=== PATIENT | male | born 1980 | race Caucasian/White ===

== ENCOUNTER 2017-08-04 21:44 | Emergency (ER) | payer SELFPAY ==
[~2017-08-04] VITALS: Ht 185.4 cm; Wt 108.4 kg
[2017-08-04 21:48] VITALS: BP 139/81; PULSE 87; RESP 16; TEMP 102.1; O2SAT 95
[2017-08-04 22:00] VITALS: BP 139/81; PULSE 87; RESP 18; TEMP 102.1; O2SAT 95
[2017-08-04 22:10] VITALS: BP 142/76; PULSE 76; RESP 16; O2SAT 97
[2017-08-04] MEDS ORDERED: PROM25TA10 PO (22:15)
[2017-08-04] MEDS ORDERED: AMOX500C PO (22:15)
[2017-08-04] MEDS ORDERED: BENZ1CAP51 PO (22:15)
[2017-08-04] MEDS ORDERED: FEXO1TAB97 PO (22:15)
[2017-08-04] MEDS ORDERED: SODIUM CHLOR 0.9% 1000 ML INJ 1,000 ML IV SCH (22:20)
--- NOTE | 2017-08-04 22:20 | PD ---
HPI Chief Complaint: Allergic/Adverse Reaction Time Seen by Provider: 22:10 Travel History International Travel<30 days: No Contact w/Intl Traveler<30days: No Traveled to known affect area: No History of Present Illness HPI She was seen out at [place], and diagnosed with a pneumonia and given shots as well as a prescription for amoxicillin/Tessalon Perles/Re/. Per patient he started feeling itchy yesterday but continued on taking the regimen today, later on throughout the day tonight he started to notice bumps started to form throughout his head, neck and chest. Patient does not recall what shots. PFSH Past Medical History Diminished Hearing: No Influenza Vaccination: No Social History Alcohol Use: No Tobacco Use: Yes (1.5 PPD) Substance Use: Yes (marijuana) Allergies-Medications (Allergen,Severity, Reaction): Coded Allergies: No Known Allergies (Verified Allergy, Unknown, 08/04/17) Reported Meds & Prescriptions Reported Meds & Active Scripts Active Cipro (Ciprofloxacin HCl) 500 Mg Tab 500 Mg PO BID 5 Days Epipen 2-Baltazar Inj (Epinephrine) 0.3 Mg/0.3 Ml Pfpen 0.3 Mg SQ ONCE PRN Medrol Dosepak (Methylprednisolone) 4 Mg Dspk 4 Mg PO DIRECTED Per Pharmacist direction Pepcid (Famotidine) 20 Mg Tab 20 Mg PO BID 10 Days Reported Benzonatate 200 Mg Cap 200 Mg PO TID PRN Phenergan (Promethazine HCl) 25 Mg Tablet 25 Mg PO Q8HR PRN Re-D 24 Hour Allergy (Fexofenadine-Pseudoephedrine ER 24 HR) 180-240 Roque 1 Tab PO DAILY Amoxicillin 500 Mg Cap 500 Mg PO TID Review of Systems General / Constitutional: No: Fever Eyes: No: Visual changes HENT: No: Headaches Cardiovascular: No: Chest Pain or Discomfort Respiratory: No: Shortness of Breath Gastrointestinal: No: Abdominal Pain Genitourinary: No: Dysuria Musculoskeletal: No: Pain Skin: Positive Rash, Positive Itching Neurologic: No: Weakness Psychiatric: No: Depression Endocrine: No: Polydipsia Hematologic/Lymphatic: No: Easy Bruising Physical Exam Narrative GENERAL: SKIN: Warm and dry. However hives noted throughout upper body(head neck and shoulder area) HEAD: Atraumatic. Normocephalic. EYES: Pupils equal and round. No scleral icterus. No injection or drainage. ENT: No nasal bleeding or discharge. Mucous membranes pink and moist. No swelling to tongue or lips. No uvular edema NECK: Trachea midline. No JVD. No stridor CARDIOVASCULAR: Regular rate and rhythm. RESPIRATORY: No accessory muscle use. Clear to auscultation. Breath sounds equal bilaterally. No wheezing GASTROINTESTINAL: Abdomen soft, non-tender, nondistended. Hepatic and splenic margins not palpable. MUSCULOSKELETAL: Extremities without clubbing, cyanosis, or edema. No obvious deformities. NEUROLOGICAL: Awake and alert. No obvious cranial nerve deficits. Motor grossly within normal limits. Five out of 5 muscle strength in the arms and legs. Normal speech. PSYCHIATRIC: Appropriate mood and affect; insight and judgment normal. Data Data Last Documented VS Vital Signs Date Time Temp Pulse Resp B/P (MAP) Pulse Ox O2 Delivery O2 Flow Rate FiO2 08/04/17 23:22 82 16 147/70 (95) 97 08/04/17 23:12 Room Air 08/04/17 22:00 102.1 Orders Orders Ecg Monitoring (08/04/17 22:20) Iv Access Insert/Monitor (08/04/17 22:20) Oximetry (08/04/17 22:20) Diphenhydramine Inj (Benadryl Inj) (08/04/17 22:30) Methylprednisolone So Succ Inj (Solumedr (08/04/17 22:30) Famotidine Inj (Pepcid Inj) (08/04/17 22:30) Sodium Chlor 0.9% 1000 Ml Inj (Ns 1000 M (08/04/17 22:20) Epinephrine (1:1000) Inj (Adrenalin (1:1 (08/04/17 22:30) Ed Discharge Order (08/04/17 23:12) MDM Medical Decision Making Medical Screen Exam Complete: Yes Emergency Medical Condition: Yes Medical Record Reviewed: Yes Differential Diagnosis Dermatitis versus allergic reaction versus angioedema versus anaphylaxis Narrative Course Patient was evaluated after evaluation and examination the patient is has symptoms consistent with allergic reaction, the patient will be given Benadryl Pepcid Solu-Medrol IV and epinephrine subcu Diagnosis Primary Impression: Allergic reaction unknown source Additional Instructions: Highly recommend that you stop your amoxicillin, stop the Tessalon Perles, and stop any other medications that you were given by the urgent care with the exception of the Re. It is okay to take the Re in addition to the medications I am giving you today, Pepcid/Medrol Dosepak/which will help you with your allergic reaction. I have switched your antibiotic from amoxicillin to Cipro which will cover very well for any type of pneumonia. You are also been given a prescription for EpiPen in the event that you develop not only the rash but also difficulty breathing or feel a knot sensation on your throat or swelling to lip or tongue Scripts Ciprofloxacin (Cipro) 500 Mg Tab 500 MG PO BID for Infection for 5 Days, #10 TAB 0 Refills Prov: Stephan Ochoa MD 08/04/17 Epinephrine Inj (Epipen 2-Baltazar Inj) 0.3 Mg/0.3 Ml Pfpen 0.3 MG SQ ONCE Y for ALLERGIC REACTION, #1 PACK 0 Refills Prov: Stephan Ochoa MD 08/04/17 Methylprednisolone Dosepak (Medrol Dosepak) 4 Mg Dspk 4 MG PO DIRECTED, #1 DSPK 0 Refills Per Pharmacist direction Prov: Stephan Ochoa MD 08/04/17 Famotidine (Pepcid) 20 Mg Tab 20 MG PO BID for 10 Days, #20 TAB 0 Refills Prov: Stephan Ochoa MD 08/04/17 Disposition: 01 DISCHARGE HOME Condition: Stable Stephan Ochoa MD Aug 04, 2017 22:20
[2017-08-04] MEDS ORDERED: FAMO1TAB37 PO (22:29)
[2017-08-04] MEDS ORDERED: CIPR-9 PO (22:29)
[2017-08-04] MEDS ORDERED: MEDR4PAK PO (22:29)
[2017-08-04] MEDS ORDERED: EPIP0.3I SQ (22:29)
[2017-08-04] MEDS ORDERED: methylPREDNISolone SOD SUCC 125 MG/2 ML VIAL IV PUSH ONE (22:30)
[2017-08-04] MEDS ORDERED: FAMOTIDINE 20 MG/2 ML VIAL IV PUSH ONE (22:30)
[2017-08-04] MEDS ORDERED: EPINEPHrine HCL (1:1000) 1 MG/ML VIAL IM ONE (22:30)
[2017-08-04] MEDS ORDERED: diphenhydrAMINE HCL 50 MG/ML VIAL IVP ONE (22:30)
[2017-08-04 22:39] VITALS: PULSE 76
[2017-08-04 23:12] VITALS: RESP 16; O2SAT 97
[2017-08-04 23:22] VITALS: BP 147/70
== END 2017-08-04 23:47 | disposition home or self-care (01) ==
LOC: PHED 21:44
DX: T78.40XA Allergy, unspecified, initial encounter (principal)
CPT/HCPCS: 96361; 96372; 96374; 96375; 99284; J0171; J1200; J2930; J7030

== ENCOUNTER 2017-08-10 06:51 | Emergency (ER) | payer SELFPAY ==
[~2017-08-10] VITALS: Ht 185.4 cm; Wt 107.0 kg
[~2017-08-10 06:51] MED LIST: AMOX500C PO; BENZ1CAP51 PO; CIPR-9 PO; EPIP0.3I SQ; FAMO1TAB37 PO; FEXO1TAB97 PO; MEDR4PAK PO; PROM25TA10 PO
[2017-08-10 07:14] VITALS: BP 122/75; PULSE 78; RESP 18; TEMP 97.6; O2SAT 98
[2017-08-10] MEDS ORDERED: LOPERAMIDE HCL 2 MG CAP PO ONE (07:45)
[2017-08-10] MEDS ORDERED: ONDANSETRON ODT 4 MG TAB PO ONE (07:45)
[2017-08-10] MEDS ORDERED: ONDA4TAB7 SL (07:47)
[2017-08-10] MEDS ORDERED: LOPE2CAP PO (07:47)
--- NOTE | 2017-08-10 07:47 | PD ---
HPI Chief Complaint: Allergic/Adverse Reaction Time Seen by Provider: 07:28 Travel History International Travel<30 days: No Contact w/Intl Traveler<30days: No Traveled to known affect area: No History of Present Illness HPI So well 37-year-old male presents to the emergency department complaining of urticaria diarrhea and nausea. He reports that he was using anabolic steroids at about 2 years ago when he started developing intermittent urticaria. He is followed up with an retail experience specialist, as well as a in home aide. He takes Re regularly that he put himself on. Apparently no cause for the urticaria was found. He is allergic to dust mites. He had been in his usual state of health until about 2 weeks ago he states he ate to turkey legs and developed pneumonia. He was treated in urgent care with antibiotics. He states he developed hives after that he was seen at [facility]. He was switched to Cipro and a steroid pack which he is still continuing. He states he was significantly improved until today he developed more urticaria and some diarrhea. History Past Medical History Medical History: Denies Significant Hx Social History Alcohol Use: No Tobacco Use: Yes (1.5 PPD) Allergies-Medications (Allergen,Severity, Reaction): Coded Allergies: amoxicillin (Verified Allergy, Intermediate, 08/10/17) benzonatate (Verified Allergy, Intermediate, 08/10/17) promethazine (Verified Allergy, Intermediate, 08/10/17) Reported Meds & Prescriptions Reported Meds & Active Scripts Active Cipro (Ciprofloxacin HCl) 500 Mg Tab 500 Mg PO BID 5 Days Epipen 2-Baltazar Inj (Epinephrine) 0.3 Mg/0.3 Ml Pfpen 0.3 Mg SQ ONCE PRN Medrol Dosepak (Methylprednisolone) 4 Mg Dspk 4 Mg PO DIRECTED Per Pharmacist direction Pepcid (Famotidine) 20 Mg Tab 20 Mg PO BID 10 Days Review of Systems Except as stated in HPI: all other systems reviewed are Neg Physical Exam Narrative GENERAL: Well-appearing 37-year-old man, no acute distress per SKIN: Focused skin assessment warm/dry. Scattered hives especially in the lower extremities and in the lower back. HEAD: Atraumatic. Normocephalic. EYES: Pupils equal and round. No scleral icterus. No injection or drainage. ENT: No nasal bleeding or discharge. Mucous membranes pink and moist. NECK: Trachea midline. No JVD. CARDIOVASCULAR: Regular rate and rhythm. No murmur appreciated. RESPIRATORY: No accessory muscle use. Breath sounds equal bilaterally. Some scattered wheezing. GASTROINTESTINAL: Abdomen soft, non-tender, nondistended. Hepatic and splenic margins not palpable. MUSCULOSKELETAL: No obvious deformities. No clubbing. No cyanosis. No edema. NEUROLOGICAL: Awake and alert. No obvious cranial nerve deficits. Motor grossly within normal limits. Normal speech. PSYCHIATRIC: Appropriate mood and affect; insight and judgment normal. Data Data Last Documented VS Vital Signs Date Time Temp Pulse Resp B/P (MAP) Pulse Ox O2 Delivery O2 Flow Rate FiO2 08/10/17 07:14 97.6 78 18 122/75 (91) 98 Orders Orders Loperamide (Imodium) (08/10/17 07:45) Ondansetron Odt (Zofran Odt) (08/10/17 07:45) [facility] Medical Decision Making Medical Screen Exam Complete: Yes Emergency Medical Condition: Yes Differential Diagnosis Urticaria, allergic reaction, serum sickness, vasculitis, other Narrative Course Medical decision making Is a 37-year-old man with recurrent urticaria and diarrhea. Symptoms been ongoing for some time. He really does not want to take anymore steroids as he believes that the anabolic steroids he was taking have caused him to get sick so far. He is finishing up his Medrol Dosepak. Is finishing up antibiotics. At this point would recommend just symptomatic treatment. He continues with antihistamines. We will give him some Zofran and loperamide to use if needed. Looks otherwise well. Diagnosis Primary Impression: Urticaria Additional Instructions: Complete antibiotics and Medrol Dosepak as previously prescribed. The Zofran if needed for nausea or vomiting. Use loperamide if needed for diarrhea. Follow-up with your primary doctor for further evaluation of the intermittent hives. Med/Other Pt SpecificInfo: Prescription(s) given Scripts Ondansetron Odt (Ondansetron Odt) 4 Mg Tab 4 MG SL Q8HR Y for Nausea/Vomiting, #6 TAB 0 Refills Prov: Alex Vu MD 08/10/17 Loperamide (Loperamide) 2 Mg Cap 2 MG PO DIRECTED Y for DIARRHEA, #8 CAP 0 Refills One capsule after each loose stool. Not to exceed 8 capsules per day. Prov: Alex Vu MD 08/10/17 Disposition: 01 DISCHARGE HOME Condition: Stable Alex Vu MD August 10, 2017 07:47
== END 2017-08-10 08:13 | disposition home or self-care (01) ==
LOC: NEPE 06:51
DX: L50.9 Urticaria, unspecified (principal); R19.7 Diarrhea, unspecified
CPT/HCPCS: 99283